=== PATIENT | female | born 1990 | race Caucasian/White ===

== ENCOUNTER 2024-07-26 17:36 | Inpatient (IN) | payer BC, SELFPAY ==
[2024-07-26] VITALS (89 sets, daily range): BP systolic 90–140; BP diastolic 38–92; PULSE 79–155; TEMP 36.6–36.8; O2SAT 97–100; BMI 33.0
[2024-07-26 18:22] LABS: Basophils Absolute Auto 0.1 K/mm3 (0.0-0.1); Basophils Percent Auto 0.5 % (0.2-1.2); Eosinophils Absolute Auto 0.1 K/mm3 (0-0.3); Eosinophils Percent Auto 1.2 % (0-4.4); Hemoglobin 13.7 g/dL (12.0-15.0); Immature Granulocyte Absolute 0.12 K/mm3 (0.00-0.031); Immature Granulocyte Percent A 1.1 % (0-0.5); Lymphocytes Absolute Auto 1.97 K/mm3 (0.9-3.2); Lymphocytes Percent Auto 18.4 % (18.3-44.2); Mean Corpuscular HGB Conc 33.4 g/dl (32-36); Mean Corpuscular Hemoglobin 30.2 pg (26-34); Mean Corpuscular Volume 90.5 fl (80-100); Mean Platelet Volume 9.7 fl (7.4-10.4); Monocytes Absolute Auto 0.7 K/mm3 (0.1-0.6); Monocytes Percent Auto 6.5 % (2.6-8.5); Neutrophils Absolute Auto 7.7 K/mm3 (1.3-6.7); Neutrophils Percent Auto 72.3 % (45.5-73.1); Platelet Count Result 302 k/mm3 (150-375); Red Blood Count 4.53 M/mm3 (4.2-5.4); Red Cell Distribution Width 12.9 % (11.5-14.5); White Blood Count 10.7 K/mm3 (4.5-10.0)
--- NOTE | 2024-07-26 18:31 | LDADM ---
This patient, Jose Castillo, was admitted to Labor/Delivery/Recovery 108 on 07/26/24 at 17:36. Plans for labor, pain management and were discussed with patient. Patient/family oriented to hospital policies and general routines including ID bracelet, bed and alarms, visiting hours, pain management, procedures, bathroom and other care routines, personal items, smoking policy, room service/diet and guest tray routines, security routines, and visiting hours. Patient/Family are encouraged to report perceived risks to care and to ask questions if they do not understand what they are told or what they should do. See OBIX for further documentation.
[2024-07-26] MEDS: LACTATED RINGERS 1,000 ML 125 ML IV CONT ×3 (18:38→21:40)
[2024-07-26] MEDS: OXYTOCIN 30 UNITS/NS 500 ML 30 UNITS/500 ML BAG 6 UNITS IV CONT (19:00)
[2024-07-26 19:10] LABS: Syphilis IgG/IgM Antibody Non-Reactive (Nonreactive)
--- NOTE | 2024-07-26 19:20 | PM.IMHP ---
H&P: HPI History of Present Illness Date/Time: 07/26/24 19:20 Chief Complaint: Term Narrative: This is 33-year-old 1 para 0 whose last menstrual was 09/30/2023, EDC is 07/25/2024, presents at 40 and 1 7 weeks gestation for induction of labor. Her has been uncomplicated she has a 10 week ultrasound confirming dates. She is negative for group B strep in her cervix is favorable. She failed her 1hour diabetic test but was 444 normal on her 3hour GTT Review of Systems Review of Systems: All systems reviewed & are unremarkable except as noted in HPI and below PMFSH Family History Family History Sibling Acute myocardial infarction Grandparent Cerebrovascular accident Father Diabetes mellitus Social History Social History Smoking status: Never smoker Substance use: never Do You Feel Safe in your Home?: Yes Lack of Transportation: No Lack of Food: Sometimes True Current Housing: I Have Housing Concerned About Future Housing: No Difficulty Paying Gas/Electric Bills: No Difficulty Paying for Meds: No Currently Unemployed: No Education: Associate Degree Difficulty w/ Childcare or Family Care: No Spiritual care concerns: No Meds Home Medications and Allergies Home Medications ?Medication ?Instructions ?Recorded ?Confirmed ?Type albuterol 90 mcg/actuation aerosol mcg inhalation 07/16/24 History inhaler vit no.95-ferrous 1 tablet PO DAILY 07/16/24 07/16/24 History fumarate 28 mg-folic acid 800 mcg tablet () Allergies Allergy/AdvReac Type Severity Reaction Status Date / Time adhesive tape Allergy Mild Rash Verified 07/26/24 18:52 Vital Signs Vital Signs - 24 hr 07/26/24 18:20 07/26/24 18:30 07/26/24 18:31 Pulse Rate 89 90 Blood Pressure 119/70 112/72 Oxygen Delivery Room Air 07/26/24 18:46 07/26/24 19:00 07/26/24 19:15 Pulse Rate 84 89 99 Blood Pressure 100/67 108/69 106/83 Oxygen Delivery Exam Const: General: cooperative, healthy appearing and comfortable Nutritional Appearance: average body habitus Orientation/consciousness: oriented to person, oriented to place and oriented to time HENMT: Head: normal to inspection Chest: Chest palpation & inspection: normal inspection of the chest Resp: Effort & Inspection: normal respiratory effort Cardio: Rate: regular rate Rhythm: regular rhythm Heart sounds: S1 normal heart sound present and S2 normal heart sound present GI: Inspection: normal to inspection (Gravid soft uterus) : External Female Exam: normal external appearance Speculum Exam - Cervix: normal appearance of the cervix (Cervix 3/75/1. AROM clear. FHTs reassuring) H&P: Results Labs Labs: Short CBC 07/26/24 Range/Units 18:16 WBC 10.7 H (4.5-10.0) K/mm3 Hgb 13.7 (12.0-15.0) g/dL Hct 41.0 (37.0-47.0) % Plt Count 302 (150-375) k/mm3 Assessment and Plan Assessment and plan (1) Term : Code(s): Z34.90 - Encounter for supervision of normal , unspecified, unspecified trimester Status: Acute Plan Medical induction of labor. Spontaneous vaginal delivery is expected. She is an epidural candidate.
[2024-07-26 19:25] LABS: HIV 1/2 Ab P24 Ag Result Negative (Negative)
--- NOTE | 2024-07-26 20:42 | WPDANESEPP ---
Anes - Eval Pre Procedure Procedure: Labor Epidural Date/Time: 07/26/24 20:42 Surgeon: Evangelina Preop Diagnosis: Labor Pain Pre Op Diagnosis: IOL Patient Data Age: 33 Gender: F Height: 1.52 m Weight: 76.8 kg Last Vital Signs Temp 36.8 C 07/26/24 20:40 Pulse 86 07/26/24 20:16 BP 110/70 07/26/24 20:16 O2 Del Method Room Air 07/26/24 18:31 Allergies Allergy/AdvReac Type Severity Reaction Status Date / Time adhesive tape Allergy Mild Rash Verified 07/26/24 18:52 Home Medications ?Medication ?Instructions ?Recorded ?Confirmed ?Type albuterol 90 mcg/actuation aerosol mcg inhalation 07/16/24 History inhaler vit no.95-ferrous 1 tablet PO DAILY 07/16/24 07/16/24 History fumarate 28 mg-folic acid 800 mcg tablet () Laboratory Tests 07/26/24 18:16 WBC 10.7 H K/mm3 (4.5-10.0) RBC 4.53 M/mm3 (4.2-5.4) Hgb 13.7 g/dL (12.0-15.0) Hct 41.0 % (37.0-47.0) MCV 90.5 fl (80-100) MCH 30.2 pg (26-34) MCHC 33.4 g/dl (32-36) RDW 12.9 % (11.5-14.5) Plt Count 302 k/mm3 (150-375) MPV 9.7 fl (7.4-10.4) Immature Gran % (Auto) 1.1 H % (0-0.5) Neut % (Auto) 72.3 % (45.5-73.1) Lymph % (Auto) 18.4 % (18.3-44.2) [place] % (Auto) 6.5 % (2.6-8.5) Eos % (Auto) 1.2 % (0-4.4) Baso % (Auto) 0.5 % (0.2-1.2) Lymph # (Auto) 1.97 K/mm3 (0.9-3.2) [place] # (Auto) 0.7 H K/mm3 (0.1-0.6) Eos # (Auto) 0.1 K/mm3 (0-0.3) Baso # (Auto) 0.1 K/mm3 (0.0-0.1) Abs Immat Gran (auto) 0.12 H K/mm3 (0.00-0.031) Absolute Neuts (auto) 7.7 H K/mm3 (1.3-6.7) Absolute Nucleated RBC 0.000 K/mm3 (0.0-0.012) Nucleated RBC % 0.0 % (0.0-0.2) Syphilis IgG/IgM Ab Non-reactive (Nonreactive) HIV 1&2 Ab/P24 Ag 4thGn Negative (Negative) Blood Type O Positive Antibody Screen Negative : gestational age (, KATERINE 07/25/24) Patient hx anesthesia problems: none Family hx anesthesia problems: none Results Review: All pre-operative results and documents have been reviewed as part of the pre-operative evaluation. [facility] Family History Family History Sibling Acute myocardial infarction Grandparent Cerebrovascular accident Father Diabetes mellitus Social History Social History Smoking status: Never smoker Substance use: never Do You Feel Safe in your Home?: Yes Lack of Transportation: No Lack of Food: Sometimes True Current Housing: I Have Housing Concerned About Future Housing: No Difficulty Paying Gas/Electric Bills: No Difficulty Paying for Meds: No Currently Unemployed: No Education: Associate Degree Difficulty w/ Childcare or Family Care: No Spiritual care concerns: No Exam Day of Procedure 07/26/24 20:42 Patient weight: normal Heart: regular rate and rhythm Lungs: normal air movement Airway: Mallampati scale class II Neurological: alert and oriented
[2024-07-26] MEDS: PHENYLEPHRINE 1,000 MCG/10 ML SYRINGE 100 MCG IV PUSH (21:37)
[2024-07-26] MEDS: FAMOTIDINE 20 MG/2 ML VIAL IV PUSH (21:41)
[2024-07-26] MEDS: ONDANSETRON INJ 4 MG/2 ML VIAL IV PUSH (23:27)
[2024-07-27] VITALS (94 sets, daily range): BP systolic 87–120; BP diastolic 49–82; PULSE 78–156; RESP 16–20; TEMP 36.4–37.2; O2SAT 93–100
[2024-07-27] MEDS: METOCLOPRAMIDE HCL INJ 10 MG/2 ML VIAL IV PUSH (01:25)
--- NOTE | 2024-07-27 03:35 | P.PCNOB_ITS ---
OB - Vaginal Delivery Note Procedure Delivery date: 07/27/24 Induction method: AROM Delivery monitor: External FHT and Internal Uterine Route of delivery: Episiotomy description: None Laceration Description: None Specimen: No Quantitative Blood Loss (ml): 162 Anesthesia type: Epidural Disposition: Floor Complications: No immediate complications Narrative: Patient was admitted the p.m. of 07/26/2024. Artificial rupture membranes performed. She progressed to an unremarkable 1st stage of labor to completely dilated pushed delivered the head spontaneously in the DENYS position. Anterior posterior shoulder delivered spontaneously. Cord clamped x2 and cut passed off the table given Apgars of 8 [id number] and 9 [id number]. Cord blood was drawn. Placenta delivered intact spontaneously. Twenty of Pitocin placed in the IV to help firm the uterus. The vagina was inspected no lacerations or tears were noted. QBL was 162cc. All sponge, needle, instrument counts were correct. There were no immediate complications [place] Baby Date of : 07/27/24 Time of : 03:19 Gestational Age by Date: 40 Infant gender: Female Weight (pounds): 6 Weight (ounces): 10 presentation: vertex position: Right Occiput Anterior Placenta delivery description: Spontaneous Cord Vessel Description: 3 Vessels score one minute: 8 score five minutes: 9
--- NOTE | 2024-07-27 03:38 | P.DS_ITS ---
DS: Admitting Diagnosis Discharge Date 07/28/24 <Shanthi Jimenez MD - Last Filed: 07/28/24 10:55> Admitting Diagnosis Term <Aramis Melendrez MD - Last Filed: 07/27/24 03:40> DS: Discharge Diagnosis Discharge Diagnosis (1) Term : Code(s): Z34.90 - Encounter for supervision of normal , unspecified, unspecified trimester <Aramis Melendrez MD - Last Filed: 07/27/24 03:40> Status: Acute <Aramis Melendrez MD - Last Filed: 07/27/24 03:40> DS: Summary Hospital Course Reason for hospitalization: Patient was admitted for induction of labor on the evening of 07 26 24 and underwent spontaneous vaginal delivery on 07/27 24. <Aramis Melendrez MD - Last Filed: 07/27/24 03:40> Hospital Course: Patient's hospital course unremarkable. She remained afebrile. She was up, voiding without difficulty, eating regular diet, ambulating, and generally without complaints. <Aramis Melendrez MD - Last Filed: 07/27/24 03:40> Time Spent with Patient Time attestation: Total time spent providing and/or coordinating discharge services: <Aramis Melendrez MD - Last Filed: 07/27/24 03:40> Exam Const: General: cooperative, healthy appearing and comfortable <Aramis Melendrez MD - Last Filed: 07/27/24 03:40> Nutritional Appearance: average body habitus <Aramis Melendrez MD - Last Filed: 07/27/24 03:40> Orientation/consciousness: oriented to person, oriented to place and oriented to time <Aramis Melendrez MD - Last Filed: 07/27/24 03:40> HENMT: Head: normal to inspection <Aramis Melendrez MD - Last Filed: 07/27/24 03:40> Chest: Chest palpation & inspection: normal inspection of the chest <Aramis Melendrez MD - Last Filed: 07/27/24 03:40> Resp: Effort & Inspection: normal respiratory effort <Aramis Melendrez MD - Last Filed: 07/27/24 03:40> Cardio: Rate: regular rate <Aramis Melendrez MD - Last Filed: 07/27/24 03:40> Rhythm: regular rhythm <Aramis Melendrez MD - Last Filed: 07/27/24 03:40> Heart sounds: S1 normal heart sound present and S2 normal heart sound present <Aramis Melendrez MD - Last Filed: 07/27/24 03:40> GI: Inspection: normal to inspection (Gravid soft uterus) <Aramis Melendrez MD - Last Filed: 07/27/24 03:40> : External Female Exam: normal external appearance <Aramis Melendrez MD - Last Filed: 07/27/24 03:40> Speculum Exam - Cervix: normal appearance of the cervix (Cervix 375/1. AROM clear. FHTs reassuring) <Aramis Melendrez MD - Last Filed: 07/27/24 03:40> DS: Data Data Completed and Pending Labs on day of discharge: Labs from last 24 hours 07/26/24 18:16 WBC 10.7 H RBC 4.53 Hgb 13.7 Hct 41.0 MCV 90.5 MCH 30.2 MCHC 33.4 RDW 12.9 Plt Count 302 MPV 9.7 Immature Gran % (Auto) 1.1 H Neut % (Auto) 72.3 Lymph % (Auto) 18.4 [place] % (Auto) 6.5 Eos % (Auto) 1.2 Baso % (Auto) 0.5 Lymph # (Auto) 1.97 [place] # (Auto) 0.7 H Eos # (Auto) 0.1 Baso # (Auto) 0.1 Abs Immat Gran (auto) 0.12 H Absolute Neuts (auto) 7.7 H Absolute Nucleated RBC 0.000 Nucleated RBC % 0.0 Syphilis IgG/IgM Ab Non-reactive HIV 1&2 Ab/P24 Ag 4thGn Negative Blood Type O Positive Antibody Screen Negative <Aramis Melendrez MD - Last Filed: 07/27/24 03:40> Discharge Plan Discharge Attending physician on discharge: Aramis Arambula <Aramis Melendrez MD - Last Filed: 07/27/24 03:40> Aramis Arambula <Shanthi Jimenez MD - Last Filed: 07/28/24 10:55> Discharging Clinician: Shanthi Jimenez <Aramis Melendrez MD - Last Filed: 07/27/24 03:40> Shanthi Jimenez <Shanthi Jimenez MD - Last Filed: 07/28/24 10:55> Patient Disposition: Home <Aramis Melendrez MD - Last Filed: 07/27/24 03:40> Activity: may shower, no straining and pelvic rest <Aramis Melendrez MD - Last Filed: 07/27/24 03:40> may shower, no straining and pelvic rest <Shanthi Jimenez MD - Last Filed: 07/28/24 10:55> Diet: heart healthy <Aramis Melendrez MD - Last Filed: 07/27/24 03:40> heart healthy <Shanthi Jimenez MD - Last Filed: 07/28/24 10:55> Wound Care Instructions: follow printed instructions <Aramis Melendrez MD - Last Filed: 07/27/24 03:40> follow printed instructions <Shanthi Jimenez MD - Last Filed: 07/28/24 10:55> Patient Instructions: Antibiotic Form <Aramis Melendrez MD - Last Filed: 07/27/24 03:40> Patient Language: [place] <Aramis Melendrez MD - Last Filed: 07/27/24 03:40> Stand Alone Forms: General Discharge Information <Aramis Melendrez MD - Last Filed: 07/27/24 03:40> Follow-up/Referrals: Aramis Arambula MD [Primary Care Provider] - <Aramis Melendrez MD - Last Filed: 07/27/24 03:40> Discharge Medications: Continued albuterol 90 mcg/actuation aerosol inhalation PNV cmb#95-ferrous fumarate-FA [] 28 mg iron- 800 mcg tablet 1 tablet PO DAILY <Aramis Melendrez MD - Last Filed: 07/27/24 03:40> Date of admission: 07/26/24 17:36 <Aramis Melendrez MD - Last Filed: 07/27/24 03:40> Primary Care Provider: Aramis Arambula <Aramis Melendrez MD - Last Filed: 07/27/24 03:40> Admitting Provider: Aramis Arambula <Aramis Melendrez MD - Last Filed: 07/27/24 03:40> Attending physician on admission: Aramis Arambula <Aramis Melendrez MD - Last Filed: 07/27/24 03:40> Condition: Stable <Aramis Melendrez MD - Last Filed: 07/27/24 03:40>
[2024-07-27] MEDS: OXYTOCIN 30 UNITS/NS 500 ML 30 UNITS/500 ML BAG 125 UNITS IV CONT (03:54)
[2024-07-27] MEDS: ACETAMINOPHEN 325 MG TABLET 650 MG PO (04:26)
[2024-07-27] MEDS: WITCH HAZEL 40 PADS 1 PAD TOPICAL (04:27)
[2024-07-27] MEDS: BENZOCAINE 20% AER SPR (*SP) 56 GM CAN 1 SPRAY TOPICAL (04:27)
--- NOTE | 2024-07-27 05:59 | OBPPTRN ---
Patient transferred to post room #285 via wheelchair. Support person present. Oriented to unit, room, information board, rooming in, admission packet and security measures. Patient verbalizes understanding.
[2024-07-27] MEDS: DOCUSATE SODIUM 100 MG CAPSULE PO (09:36)
[2024-07-27] MEDS: IBUPROFEN 600 MG TABLET PO (09:36)
[2024-07-27] MEDS: PANTOPRAZOLE 40 MG TABLET PO (23:22)
[2024-07-28 04:49] LABS: Hematocrit 32.1 % (37.0-47.0); Hemoglobin 10.6 g/dL (12.0-15.0)
--- NOTE | 2024-07-28 06:51 | WPDANLDPN2 ---
Anes-Prog Note L&D Date/Time: 07/28/24 06:51 Comfortable throughout: labor and delivery Neuraxial method: epidural Epidural/Spinal procedure site: clean & non-tender Neuro status: Neuro function grossly intact. Cardiovascular status: normal Respiratory status: normal Airway patency: baseline Mental status: baseline Post-Op hydration status: normal Vital Signs: Last Vital Signs Temp 97.7 F 07/27/24 20:00 Pulse 89 07/27/24 20:00 Resp 20 07/27/24 20:00 BP 113/66 07/27/24 20:00 Pulse Ox 96 07/27/24 20:00 O2 Del Method Room Air 07/26/24 18:31 Pain score (VAS): 1 Post-procedural complaints: none Patient feedback: Patient satisfied with anesthetic care.
[2024-07-28 07:58] VITALS: BP 100/64; PULSE 81; RESP 18; TEMP 36.6; O2SAT 97
[2024-07-28] MEDS: IBUPROFEN 600 MG TABLET PO (08:35)
--- NOTE | 2024-07-28 10:54 | P.PNOB_ITS ---
OB - PN: Subj Subjective Date/time seen: 07/28/24 10:54 Patient comments: no complaints and pain well controlled baby status: doing well OB - PN: Obj Data Labs 07/28/24 03:55 Labs: Laboratory Results - last 24 hr 07/28/24 03:55 Hgb 10.6 L D Hct 32.1 L OB - PN A/P Plan day: 2 Plan: routine care and discharge home Time Spent With Patient Time: Total time spent is greater than 50% in coordination of care (as documented) at patient's floor/unit and/or counseling patient: Exam 2 : Bimanual exam- vagina & uterus: other (Uterus firm, nt @U)
[2024-07-30 10:14] VITALS: BP 111/63; PULSE 85; RESP 18; TEMP 36.6; O2SAT 98
== END 2024-07-28 11:50 | disposition home or self-care (01) | DRG 807 ==
LOC: ANHLDR 07-30 13:46 → ANHOB2 07-30 13:46
PROVIDERS: Admitting Provider Obstetrics & Gynecology; PCP Obstetrics & Gynecology; Visit Provider Obstetrics & Gynecology Gynecology
DX: O80 Encounter for full-term uncomplicated delivery (principal); Z37.0 Single live birth; Z3A.40 40 weeks gestation of pregnancy
CPT/HCPCS: 36415; 85014; 85018; 85025; 86593; 86703; 86850; 86900; 86901; A9270; G0432; J2371; J2405; J2590; J2765; J2795; J7120